=== PATIENT | female | born 1990 | race Caucasian/White ===

== ENCOUNTER 2021-05-01 10:17 | Emergency (ER) | payer MEDICAID ==
[~2021-05-01] VITALS: Ht 172.7 cm; Wt 111.4 kg
[2021-05-01 11:17] LABS: BASO # 0.04 K/mm3 (0.02-0.10); EOS # 0.18 K/mm3 (0.04-0.40); EOS % 2.2 % (1.0-5.0); HEMATOCRIT 41.6 % (37.0-47.0); LYMPH# 1.91 K/mm3 (1.50-4.00); MEAN CELL VOLUME 87 fl (78-100); MEAN CORPUSCULAR HEMOGLOBIN 27 pg (27-31); MEAN CORPUSCULAR HGB CONC 31 g/dL (33-37); MEAN PLATELET VOLUME 10.8 fl (7.4-10.4); MONO # 0.44 K/mm3 (0.20-0.80); NEU # 5.68 K/mm3 (1.40-6.50); PLATELET COUNT 258 K/mm3 (130-400); WHITE BLOOD COUNT 8.3 K/mm3 (4.8-10.8)
[2021-05-01 11:21] LABS: URINE APPEARANCE CLEAR; URINE BILIRUBIN NEGATIVE (NEGATIVE); URINE BLOOD NEGATIVE (NEGATIVE); URINE COLOR YELLOW; URINE GLUCOSE NEGATIVE (NEGATIVE); URINE KETONE NEGATIVE (NEGATIVE); URINE LEUKOCYTE ESTERASE TRACE (NEGATIVE); URINE NITRATE NEGATIVE (NEGATIVE); URINE PROTEIN(semi-quant) TRACE mg/dL (NEGATIVE); URINE UROBILINOGEN NORMAL (NORMAL)
[2021-05-01 11:26] LABS: ALBUMIN 3.8 g/dL (3.5-5.0); SODIUM 139 mmol/L (136-145)
[2021-05-01 11:27] LABS: CALCIUM 9.1 mg/dL (8.3-10.5)
[2021-05-01 11:28] LABS: GLUCOSE 94 mg/dL (65-105)
[2021-05-01 11:29] LABS: CARBON DIOXIDE 24 mmol/L (22-29)
[2021-05-01 11:30] LABS: TOTAL BILIRUBIN 0.3 mg/dL (0.2-1.2)
[2021-05-01 11:33] LABS: ALCOHOL IN-HOUSE < 10 mg/dL (<10)
[2021-05-01 11:34] LABS: AST-SGOT 29 U/L (5-34)
[2021-05-01 11:35] LABS: ALT/SGPT 58 U/L (0-55)
[2021-05-01 11:37] LABS: ACETAMINOPHEN < 1 ug/mL
[2021-05-01] MEDS ORDERED: ZOLOFT25 M1 PO (14:48)
[2021-05-01 15:11] VITALS: BP 122/76
== END 2021-05-01 16:38 | disposition home or self-care (01) ==
LOC: ED 10:17
PROVIDERS: Nurse Practitioner
DX: O99.345 Other mental disorders complicating the puerperium (principal); F32.A Depression, unspecified

== ENCOUNTER 2021-05-05 15:54 | Emergency (ER) | payer MEDICAID ==
[~2021-05-05 15:54] MED LIST: ZOLOFT25 M1 PO
[2021-05-05 16:37] LABS: BASO # 0.01 K/mm3 (0.02-0.10); EOS # 0.07 K/mm3 (0.04-0.40); EOS % 0.7 % (1.0-5.0); HEMATOCRIT 43.6 % (37.0-47.0); HEMOGLOBIN 13.9 g/dL (12.5-16.0); LYMPH# 0.66 K/mm3 (1.50-4.00); MEAN CELL VOLUME 85 fl (78-100); MEAN CORPUSCULAR HEMOGLOBIN 27 pg (27-31); MEAN CORPUSCULAR HGB CONC 32 g/dL (33-37); MEAN PLATELET VOLUME 11.1 fl (7.4-10.4); NEU # 8.29 K/mm3 (1.40-6.50); PLATELET COUNT 229 K/mm3 (130-400); RED BLOOD COUNT 5.16 M/mm3 (4.10-5.30); WHITE BLOOD COUNT 9.6 K/mm3 (4.8-10.8)
[2021-05-05] MEDS ORDERED: ZOFRAN ODT4 MG PO (20:36)
[2021-05-05 20:44] VITALS: BP 113/67
== END 2021-05-05 20:44 | disposition home or self-care (01) ==
LOC: ED 15:54
PROVIDERS: Family Medicine
DX: A08.4 Viral intestinal infection, unspecified (principal); Z87.891 Personal history of nicotine dependence; Z20.822 Contact with and (suspected) exposure to COVID-19
CPT/HCPCS: J7030

== ENCOUNTER → 2021-07-26 | Outpatient (CLI) | payer MEDICAID ==
[~2021-07-26] MED LIST changes: +ZOFRAN ODT4 MG PO
== END ==
LOC: LAB 14:22
DX: Z20.822 Contact with and (suspected) exposure to COVID-19 (principal)

== ENCOUNTER 2021-10-03 10:34 | Emergency (ER) | payer MEDICAID ==
[2021-10-03 10:50] VITALS: BP 114/79
[2021-10-03] MEDS ORDERED: VENLAFAXINE HY150 MG PO (10:52)
[2021-10-03 12:26] LABS: POTASSIUM 4.5 mmol/L (3.5-5.1); SODIUM 139 mmol/L (136-145)
[2021-10-03 12:27] LABS: CALCIUM 9.8 mg/dL (8.3-10.5)
[2021-10-03 12:28] LABS: GLUCOSE 93 mg/dL (65-105); TOTAL PROTEIN 7.7 g/dL (6.4-8.3)
[2021-10-03 12:29] LABS: CARBON DIOXIDE 25 mmol/L (22-29)
[2021-10-03 12:30] LABS: TOTAL BILIRUBIN 0.5 mg/dL (0.2-1.2)
[2021-10-03 12:33] LABS: AST-SGOT 27 U/L (5-34); BASO # 0.01 K/mm3 (0.02-0.10); HEMOGLOBIN 13.3 g/dL (12.5-16.0); LYMPH# 1.71 K/mm3 (1.50-4.00); MEAN CELL VOLUME 85 fl (78-100); MEAN CORPUSCULAR HEMOGLOBIN 26 pg (27-31); MEAN CORPUSCULAR HGB CONC 31 g/dL (33-37); MEAN PLATELET VOLUME 11.4 fl (7.4-10.4); MONO # 0.44 K/mm3 (0.20-0.80); NEU # 5.91 K/mm3 (1.40-6.50); PLATELET COUNT 263 K/mm3 (130-400); RED BLOOD COUNT 5.09 M/mm3 (4.10-5.30); WHITE BLOOD COUNT 8.1 K/mm3 (4.8-10.8)
[2021-10-03 12:35] LABS: ALT/SGPT 59 U/L (0-55)
[2021-10-03 12:39] LABS: ACETAMINOPHEN < 1 ug/mL; ALCOHOL IN-HOUSE < 10 mg/dL (<10)
[2021-10-03 13:14] LABS: URINE APPEARANCE CLOUDY; URINE COLOR YELLOW
[2021-10-03 13:15] LABS: URINE BILIRUBIN NEGATIVE (NEGATIVE); URINE GLUCOSE NEGATIVE (NEGATIVE); URINE KETONE 1+ (NEGATIVE); URINE PROTEIN(semi-quant) NEGATIVE (NEGATIVE); URINE UROBILINOGEN NORMAL (NORMAL)
[2021-10-03 13:16] LABS: URINE BLOOD NEGATIVE (NEGATIVE); URINE LEUKOCYTE ESTERASE NEGATIVE (NEGATIVE); URINE NITRATE NEGATIVE (NEGATIVE); URINE WBC 0-1 /hpf (0-3)
== END 2021-10-03 16:29 | disposition home or self-care (01) ==
LOC: ED 10:34
PROVIDERS: Physician Assistant
DX: F32.A Depression, unspecified (principal); R45.851 Suicidal ideations

== ENCOUNTER → 2021-11-09 | Outpatient (CLI) | payer MEDICAID ==
[~2021-11-09] MED LIST changes: +VENLAFAXINE HY150 MG PO
== END ==
LOC: RAD 09:32
DX: M25.571 Pain in right ankle and joints of right foot (principal)

== ENCOUNTER → 2021-11-19 | Outpatient (CLI) | payer MEDICAID | LOC: LAB 16:20 | DX: F31.9 Bipolar disorder, unspecified (principal); Z72.51 High risk heterosexual behavior; E66.9 Obesity, unspecified; G47.09 Other insomnia; L40.9 Psoriasis, unspecified ==

== ENCOUNTER → 2021-12-13 | Outpatient (CLI) | payer MEDICAID | LOC: RAD 19:37 | DX: S99.911A Unspecified injury of right ankle, initial encounter (principal); X58.XXXA Exposure to other specified factors, initial encounter ==

== ENCOUNTER → 2022-08-21 | Outpatient (CLI) | payer MEDICAID ==
[~2022-08-21] MED LIST changes: +ARIPIPRAZOLE10 M1 PO; +CLONAZEPAM0.5 M1 PO; +OMEPRAZOLE40 MG PO
== END ==
LOC: RAD 07:41
DX: K80.20 Calculus of gallbladder without cholecystitis without obstruction (principal)

== ENCOUNTER → 2023-04-23 | Outpatient (CLI) | payer MEDICAID ==
[~2023-04-23] MED LIST changes: +ATOMOXETINE HCL40 MG PO; +BETAMETHASONE D0.05% TOP; +CLEOCIN HCL300 MG PO; +DERMA SMOOTHE; +HYDROXYZINE HYD50 M1 PO; +LAMOTRIGINE50 MG PO; +ONDANSETRON HYDR4 MG PO; +PROAIR RESPICL90 MCG IH; +SEROQUEL50 MG PO; +TRIDERM28.4 GM; +VENLAFAXINE H37.5 M4 PO; +VENLAFAXINE HCL75 M3 PO; +VYVANSE30 MG PO
== END ==
LOC: LAB 16:51
DX: F22 Delusional disorders (principal); F90.9 Attention-deficit hyperactivity disorder, unspecified type